=== PATIENT | female | born 1940 | race Caucasian/White ===

== ENCOUNTER 2016-10-23 09:37 | Observation (INO) | payer OTHER ==
[~2016-10-23] VITALS: Ht 156.2 cm; Wt 69.8 kg
[2016-10-23] MEDS ORDERED: NITROGLYCERIN 2% OINT 1 INCH PKT TOPICAL ONE (10:54)
[2016-10-23] MEDS ORDERED: MORPHINE 2 MG/ML SYR IV PRN (13:30)
[2016-10-23] MEDS ORDERED: NITROGLYCERIN SL 0.4 MG TAB SL PRN (13:30)
[2016-10-23] MEDS ORDERED: DOCUSATE SOD 100 MG CAP PO PRN (13:30)
[2016-10-23] MEDS ORDERED: ONDANSETRON 4 MG VIAL IV PRN (13:30)
[2016-10-23] MEDS ORDERED: TEMAZEPAM 7.5 MG CAP PO PRN (13:30)
[2016-10-23] MEDS ORDERED: ALU/MAG/SIM 30 ML UDC PO PRN (13:30)
[2016-10-23] MEDS ORDERED: SALINE FLUSH 10 ML FLUSH PRN (13:30)
[2016-10-23] MEDS ORDERED: TEMAZEPAM 15 MG CAP PO PRN (13:30)
[2016-10-23] MEDS ORDERED: TRAMADOL 50 MG TAB PO PRN (13:30)
[2016-10-23] MEDS ORDERED: LORAZEPAM 0.5 MG TAB PO PRN (13:30)
[2016-10-23] MEDS ORDERED: ACETAMINOPHEN 325 MG TAB PO PRN (13:30)
[2016-10-23] MEDS: ASPIRIN 81 MG CHEW TAB PO SCH (14:11)
[2016-10-23] MEDS ORDERED: ENOXAPARIN 80 MG/0.8 ML SYR SUBQ ONE (14:12)
[2016-10-23 15:16] VITALS: BP_SYST 98; RESP 18; TEMP 98.6
[2016-10-23 15:47] VITALS: Ht 156.2 cm; Wt 69.8 kg
[2016-10-23 17:32] VITALS: RESP 18
[2016-10-23] MEDS: NITROGLYCERIN 2% OINT 1 INCH PKT TOPICAL SCH ×2 (18:18→23:02)
[2016-10-23 19:48] VITALS: BP_SYST 100; RESP 18; TEMP 97.8
[2016-10-23] MEDS: SALINE FLUSH 10 ML FLUSH SCH (20:37)
[2016-10-24] VITALS (8 sets, daily range): BP systolic 102–133; RESP 18; TEMP 97.7–98.4
[2016-10-24] MEDS: NITROGLYCERIN 2% OINT 1 INCH PKT TOPICAL SCH ×2 (05:54→11:30)
[2016-10-24] MEDS ORDERED: SODIUM CHLORIDE 0.9% FLUSH BAG 500 ML IV SCH (06:00)
[2016-10-24] MEDS ORDERED: FENTANYL 100 MCG/2 ML AMP ONE (07:00)
[2016-10-24] MEDS ORDERED: LIDOCAINE 2% 20 ML ONE (07:00)
[2016-10-24] MEDS ORDERED: MIDAZOLAM 2 MG/2 ML INJ ONE (07:00)
[2016-10-24] MEDS: SALINE FLUSH 10 ML FLUSH SCH (08:57)
[2016-10-24] MEDS: ASPIRIN 81 MG CHEW TAB PO SCH (08:57)
[2016-10-24] MEDS ORDERED: DIAZEPAM 5 MG TAB PO ONE (09:00)
[2016-10-24] MEDS ORDERED: DIPHENHYDRAMINE 25 MG CAP PO ONE (09:00)
[2016-10-24] MEDS ORDERED: TEMAZEPAM 7.5 MG CAP PO PRN (09:00)
[2016-10-24] MEDS ORDERED: LORAZEPAM 0.5 MG TAB PO PRN (09:00)
[2016-10-24] MEDS ORDERED: ACETAMINOPHEN 325 MG TAB PO PRN (09:00)
[2016-10-24] MEDS ORDERED: TEMAZEPAM 15 MG CAP PO PRN (09:00)
[2016-10-24] MEDS ORDERED: MORPHINE 2 MG/ML SYR IV ONE (10:05)
[2016-10-24] MEDS ORDERED: METOPROLOL XL 25 MG TAB PO SCH (10:05)
[2016-10-24] MEDS ORDERED: ONDANSETRON 4 MG VIAL IV PRN (10:05)
[2016-10-24] MEDS ORDERED: MIDAZOLAM 2 MG/2 ML INJ IV ONE (10:05)
[2016-10-24] MEDS ORDERED: SALINE FLUSH 10 ML FLUSH PRN (10:05)
[2016-10-24] MEDS ORDERED: MIDAZOLAM 2 MG/2 ML INJ IV PRN (10:05)
[2016-10-24] MEDS ORDERED: ATROPINE 1 MG/10 ML SYRINGE IV PRN (10:05)
[2016-10-24] MEDS ORDERED: LIDOCAINE 2% 20 ML SUBQ ONE (10:05)
[2016-10-24] MEDS ORDERED: ASPIRIN 81 MG CHEW TAB PO SCH (10:07)
[2016-10-24] MEDS ORDERED: glipiZIDE XL 5 MG TAB PO SCH (17:00)
[2016-10-24] MEDS ORDERED: SALINE FLUSH 10 ML FLUSH SCH (20:00)
[2016-10-24] MEDS ORDERED: Atorvastatin 20 MG TAB PO SCH (21:00)
[2016-10-25] MEDS ORDERED: SODIUM CHLORIDE 0.9% FLUSH BAG 500 ML IV SCH (06:00)
== END 2016-10-24 10:07 | disposition home or self-care (01) ==
LOC: ER 09:37 → EMR 13:28 → ENPENDDIS 13:28 → PCU2 15:12
PROVIDERS: ADMIT Internal Medicine Cardiovascular Disease; ATTEND Internal Medicine Cardiovascular Disease
CPT/HCPCS: 36415 ×2; 71010 ×2; 80053 ×2; 80061 ×2; 82550 ×2; 83735 ×2; 84484 ×2; 85025 ×2; 85610 ×2; 85730 ×2; 93005 ×2; 93458 ×2; 94799; 96372 ×2; 99291; C1894; G0378; J2250; J3010